=== PATIENT | male | born 1995 | race Caucasian/White ===

== ENCOUNTER 2018-03-29 10:23 | Emergency (ER) | payer OTHER, SELFPAY ==
[2018-03-29 10:25] VITALS: BP 125/82; PULSE 90; RESP 14; TEMP 36.4; O2SAT 99; BMI 29.2
--- NOTE | 2018-03-29 10:36 | ED.GENADULT ---
HPI - General Adult General Chief complaint: Skin/Abscess/Foreign Body Stated complaint: SLICED HAND OPEN History of Present Illness HPI narrative: HPI 22-year-old male presents for evaluation of an approximately 6 cm long full thickness laceration longitudinally across the base of his thenar eminence that occurred approximately 30 minutes [employer] when the patient slept with a clean razor blade and accidentally cut his hand. Patient reports that he was placing the razor blade onto sanchez used in the installation of car windows when his hand slipped. Patient notes mildly decreased sensation as if his hand is numb along the palmar surface of his thumb, remains able to detect touch and pressure to his thumb. Unknown tetanus status. ROS with no recent constitutional symptoms. Exam Gen: Pleasant, nontoxic-appearing, resting comfortably. HEENT: NC, AT, PEERL, EOMI. Resp: Unlabored respirations with a normal work of breathing. Card: Extremities warm and well perfused. GI: Non-distended. : Deferred MSK: left hand visually normal with the exception of a 6 cm long full thickness longitudinal laceration on the base of the thenar [place]. Neuro: AO x 3, no facial asymmetry, vision and hearing WNL. Heme/Lymph: Deferred Skin: Normal color with no visible lesions (other than noted above). Psych: Mood and affect appropriate. XR L hand: no acute fracture or radiopaque foreign body. MDM Previous chart, nursing note, and vitals reviewed. A: 22-year-old male presents for evaluation of an approximately 6 cm long full thickness laceration longitudinally across the base of his thenar eminence that occurred approximately 30 minutes [employer] when the patient slept with a clean razor blade and accidentally cut his hand. DDx & Evaluation: * wound anesthetize with 0.5% bupivacaine. Tdap given. * L hand x-ray without evidence of foreign bodies. * Laceration repaired as documented below. * Short thumb spica applied to reduce ROM and wound tension. * Cephalexin prophylaxis prescribed. Impression: laceration (please reference below for remainder of encounter information) Laceration Repair Verbal consent obtained. Wound cleaned with approximately 1 gallon clean running water. Local infiltration of 20 (10 mL x 2 with a delta of 1 hour) [0.5% bupivacaine without epinephrine was used for anesthesia. Minimal debriding of tissue required. No foreign bodies removed, entirety of wound well visualized with no remaining foreign bodies appreciated. Using a clean procedure the wound was repaired with 6 4-0 Vicryl deep buried sutures with the dermal layer closed with 21 4-0 nylon simple interrupted sutures. No undermining required, patient tolerated the procedure well without apparent complications. Wound dressed with a non-adhesive dressing Related Data Home Medications Medication Instructions Recorded Confirmed No Known Home Medications 03/29/18 03/29/18 Allergies Allergy/AdvReac Type Severity Reaction Status Date / Time No Known Drug Allergies Allergy Verified 03/29/18 10:38 [facility] Social History Smoking Status: Never smoker Discharge Plan Departure Prescriptions: No Action No Known Home Medications RF: 0
--- NOTE | 2018-03-29 10:38 | DI.RAD.S_ITS ---
PROCEDURE: XR HAND LT MIN 3V INDICATIONS: foreign bodies TECHNIQUE: 3 views of the hand(s) acquired. COMPARISON: None. FINDINGS: Bones: No fractures or dislocations. Carpal bones are normally aligned. No suspicious bony lesions. Soft tissues: No suspicious soft tissue calcifications. IMPRESSION: No acute fracture nor radiopaque foreign body. No osseous lesion. If symptoms and/or clinical suspicion for pathology persist, further assessment with repeat, or advanced imaging (e.g., CT, MRI, or bone scan) may be helpful for further assessment. Dictated by: Alan Barboza M.D. on 03/29/2018 at 10:51 Approved by: Alan Barboza M.D. on 03/29/2018 at 10:51
--- NOTE | 2018-03-29 10:40 | PC.NURSE ---
. in to eval and numb wound w/ bupivicaine. Bleeding controlled w/ abd pad and coban wrap + elevation.
[2018-03-29] MEDS: TET,DIPH,PERTUSS(ACELL),VAC/PF 0.5 ML SYRINGE IM (12:04)
[2018-03-29 12:46] VITALS: BP 148/68; PULSE 63; RESP 16; TEMP 36.6; O2SAT 99
--- NOTE | 2018-03-29 14:04 | PC.NURSE ---
MD Adams at bedside numbing and suturing hand.
[2018-03-29 14:29] VITALS: BP 157/90; PULSE 79; RESP 15; O2SAT 98
[2018-03-29 15:00] VITALS: BP 157/90; PULSE 79; RESP 15; O2SAT 99
== END 2018-03-29 15:00 | disposition home or self-care (01) ==
PROVIDERS: Emergency Provider Emergency Medicine
DX: S61.412A Laceration without foreign body of left hand, initial encounter (principal); W26.0XXA Contact with knife, initial encounter
CPT/HCPCS: 12002; 29280; 73130; 90471; 99283; 90715